=== PATIENT | female | born 2000 | race African-American/Black ===

== ENCOUNTER 2021-10-31 17:25 | Outpatient (CLI) | payer MEDICAID ==
[~2021-10-31] VITALS: Ht 165.1 cm; Wt 74.8 kg
[2021-10-31 18:00] VITALS: BP 124/61
[2021-10-31] MEDS ORDERED: PNV11TAB5 PO (18:04)
[2021-10-31 18:06] LABS: BILIRUBIN,URINE NEGATIVE (NEGATIVE); CLARITY,URINE CLEAR; COLOR,URINE YELLOW; GLUCOSE, URINE (UA) NEGATIVE (NEGATIVE); KETONES,URINE 3+ (NEGATIVE); LEUKOCYTE ESTERASE ,URINE NEGATIVE (NEGATIVE); NITRITE,URINE NEGATIVE (NEGATIVE); PROTEIN,URINE TRACE (NEGATIVE)
[2021-10-31 18:14] LABS: BACTERIA,URINE TRACE /HPF; WBC,URINE 0-2 /HPF
[2021-10-31] MEDS ORDERED: ONDANSETRON 4 MG (ZOFRAN) ORAL DISSOLVE TAB PO STA (18:36)
--- NOTE | 2021-11-03 08:11 | Physician Query-Final Dx ---
JACK11/03/21 0811: Clinic Account Progress/Dx Physician Query: Please give diagnosis Please include # weeks gestation Date of Service Oct 31, 2021 at 17:25 LUDIN BUNCH DO 11/03/21 0849: Clinic Account Progress/Dx DIAGNOSIS: Diagnosis 28 week gestation Fall at home, on stairs Covid positive vomiting JACK,OctNov 03, 2021 08:11 LUDIN BUNCH DO Nov 03, 2021 08:49
== END 2021-10-31 22:05 | disposition home or self-care (01) ==
LOC: LDRP 17:25 → WSo 17:25
PROVIDERS: ATTEND Obstetrics & Gynecology
DX: O21.9 Vomiting of pregnancy, unspecified (principal); O98.513 Other viral diseases complicating pregnancy, third trimester; O9A.213 Injury, poisoning and certain other consequences of external causes complicating pregnancy, third trimester; Z3A.28 28 weeks gestation of pregnancy; W10.8XXA Fall (on) (from) other stairs and steps, initial encounter; Y92.009 Unspecified place in unspecified non-institutional (private) residence as the place of occurrence of the external cause
CPT/HCPCS: 81000; 87636; G0463; 99213

== ENCOUNTER → 2021-12-25 | Outpatient (CLI) | payer MEDICAID ==
[~2021-12-25] MED LIST: PNV11TAB5 PO
--- NOTE | 2021-12-25 15:02 | Diagnostic Imaging Report ---
INDICATION: survey. TECHNIQUE: Multiple real-time grayscale images were obtained over the gravid uterus. COMPARISON: None FINDINGS: There is a single live fetus in a cephalic presentation. heart rate was recorded at 138 BPM. Placenta is fundal and to the left. Amniotic fluid index is 12.5 cm. survey is somewhat limited due to advanced gestation. kidneys, bladder, and stomach are unremarkable. brain is unremarkable. There is a four-chamber heart. There is a three-vessel cord. The cord insertion was somewhat difficult to visualize. spine is unremarkable. Biometrical measurements are as follows: Biparietal 8.25 cm, age 33 weeks 2 days. Head circumference 30.07 cm, age 33 weeks 3 days. Abdominal circumference 27.88 cm, age 32 weeks 0 days. Femur length 6.78 cm, age 34 weeks 6 days. Sonographic estimate age: 33 weeks 3 days. Sonographic estimated date of delivery: 02/09/2022. Estimated Weight: 2111 gm (+/- 309 gm). LMP percentile: 4%. heart rate: 138 beats per minute. number: 1 of 1. IMPRESSION: Single live IUP measuring 33-34 weeks gestational age with the estimated of confinement sonographically of 02/09/2022. The survey is unremarkable, although cord insertion was somewhat limited in visualization. Dictated by: Dictated on workstation # [id number]
== END ==
LOC: RAD 13:00
PROVIDERS: ATTEND Nurse Practitioner Women's Health
DX: O09.33 Supervision of pregnancy with insufficient antenatal care, third trimester (principal); Z3A.33 33 weeks gestation of pregnancy
CPT/HCPCS: 76805

== ENCOUNTER 2021-12-30 10:59 | Outpatient (CLI) | payer MEDICAID ==
[~2021-12-30] VITALS: Ht 162 cm; Wt 82.6 kg
[2021-12-30 11:18] VITALS: BP 120/80
[2021-12-30 11:26] VITALS: BP 120/80
[2021-12-30 11:43] LABS: BILIRUBIN,URINE NEGATIVE (NEGATIVE); CLARITY,URINE CLEAR; COLOR,URINE YELLOW; GLUCOSE, URINE (UA) NEGATIVE (NEGATIVE); KETONES,URINE NEGATIVE (NEGATIVE); LEUKOCYTE ESTERASE ,URINE TRACE (NEGATIVE); NITRITE,URINE NEGATIVE (NEGATIVE); PH,URINE 7.5 (5-9); PROTEIN,URINE NEGATIVE (NEGATIVE)
[2021-12-30 11:57] LABS: BACTERIA,URINE TRACE /HPF; WBC,URINE 0-2 /HPF
[2021-12-30 12:38] VITALS: BP 120/80
--- NOTE | 2021-12-31 08:32 | Physician Query-Final Dx ---
Clinic Account Progress/Dx Physician Query: Please give diagnosis Please include # weeks gestation Date of Service Dec 30, 2021 at 10:59 JACK,OctDec 31, 2021 08:32
== END 2021-12-30 12:42 | disposition home or self-care (01) ==
LOC: LDRP 10:59 → WSo 10:59
PROVIDERS: ATTEND Obstetrics & Gynecology
DX: O26.899 Other specified pregnancy related conditions, unspecified trimester (principal); R10.2 Pelvic and perineal pain; Z3A.00 Weeks of gestation of pregnancy not specified
CPT/HCPCS: 81000; G0463; 99213

== ENCOUNTER 2022-01-08 10:03 | Outpatient (CLI) | payer MEDICAID ==
[~2022-01-08] VITALS: Ht 162.6 cm; Wt 86.1 kg
[2022-01-08 10:25] VITALS: BP 117/68
[2022-01-08 10:57] LABS: BILIRUBIN,URINE NEGATIVE (NEGATIVE); CLARITY,URINE CLEAR; COLOR,URINE YELLOW; GLUCOSE, URINE (UA) NEGATIVE (NEGATIVE); KETONES,URINE NEGATIVE (NEGATIVE); LEUKOCYTE ESTERASE ,URINE TRACE (NEGATIVE); NITRITE,URINE NEGATIVE (NEGATIVE); PH,URINE 6.5 (5-9); PROTEIN,URINE TRACE (NEGATIVE)
[2022-01-08 11:34] LABS: WBC,URINE 0-2 /HPF
[2022-01-08 11:35] LABS: BACTERIA,URINE TRACE /HPF
[2022-01-08 11:36] LABS: AMORPHOUS SEDIMENT,UR MOD AMOR URATES /LPF
--- NOTE | 2022-01-09 07:51 | Physician Query-Final Dx ---
JACK,01/09/22 0751: Clinic Account Progress/Dx Physician Query: Please give diagnosis Please include # weeks gestation Date of Service Jan 08, 2022 at 10:03 KAVYA NIXON DO 01/09/22 1012: Clinic Account Progress/Dx DIAGNOSIS: Diagnosis 37 week Irregular contractions JACK,OctJan 09, 2022 07:51 KAVYA NIXON DO Jan 09, 2022 10:12
== END 2022-01-08 12:02 | disposition home or self-care (01) ==
LOC: WSo 10:03 → LDRP 10:03 → WSo 12:02
PROVIDERS: ATTEND Obstetrics & Gynecology
DX: O47.1 False labor at or after 37 completed weeks of gestation (principal); Z3A.37 37 weeks gestation of pregnancy
CPT/HCPCS: 81000; G0463; 99213

== ENCOUNTER 2022-01-14 10:24 | Inpatient (IN) | payer MEDICAID ==
[2022-01-14] VITALS (29 sets, daily range): BP systolic 133–211; BP diastolic 76–109
--- OUTSIDE RECORDS SUMMARY | 2022-01-14 10:30 | XMS REPORT | Clinical Summary ---
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 Active Problems No known active problems Social History Date Tobacco Use Types Packs/Day Years Used Never Smoker Comments Alcohol Use Standard Drinks/Week Not Asked 0 (1 standard drink = 0.6 o z pure alcohol) Sex Assigned at Date Recorded Not on file Last Filed Vital Signs Reading Time Taken Comments Vital Sign 110/60 08/04/2014 1:32 PM CDT Blood Pressure 86 08/04/2014 1:32 PM CDT Pulse 36.7 C (98 F) 08/04/2014 1:32 PM CDT Temperature 16 08/04/2014 1:32 PM CDT Respiratory Rate 100% 08/04/2014 1:32 PM CDT Oxygen Saturation - - Inhaled Oxygen Concentration 71.2 kg (157 lb) 08/04/2014 1:32 PM CDT Weight 163.8 cm (5' 4.5") 08/04/2014 1:32 PM CDT Height 26.53 08/04/2014 1:32 PM CDT Body Mass Index Plan of Treatment Health Maintenance Due Date Last Done Comments Varicella Vaccines (1 of 2000 2 - 2-dose childhood series) HPV Vaccines (1 - 2-dose 2010 series) COVID-19 Vaccine (1) 2011 MenB Vaccine (Bexsero) (1 2015 of 2) Hepatitis C Screening 2017 DTaP,Tdap,and Td Vaccines 2018 (1 - Tdap) MMR Vaccines-Adult 2018 Cervical Cancer Screening 2020 Influenza Vaccine (#1) 2021 Pneumo-Vaccine: 65+Yrs (1 2064 of 1 - PPSV23) HIB Vaccines Aged Out No longer eligible based on patient's age to complete this topic IPV Vaccines Aged Out No longer eligible based on patient's age to complete this topic Meningococcal Vaccine Aged Out No longer eligib le based on patient's age to complete this topic Pneumo-Vaccine: Peds (0-5 Aged Out No longer el igible based on patient's age to Yrs) & At-Risk Patients complete this topic (6-64 Yrs) Rotavirus Vaccines Aged Out No longer eligible based on patient's age to complete this topic Results Not on filefrom Last 3 Months Insurance Type Payer Benefit Subscriber ID Effective Phone Address Plan / Dates Group [employer] KANCARE 19 [id number] 2014- [address] [employer] Present [address] [place] [address] Advance Directives For more information, please contact: [phone] 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
[2022-01-14] MEDS: LACTATED RINGERS 1,000 ML IV SCH ×2 (10:45→12:30)
[2022-01-14] MEDS ORDERED: D5 LR IV SOLUTION 1,000 ML IV SCH (11:00)
[2022-01-14] MEDS ORDERED: LIDOCAINE/EPI 2% 1:200,00 (XYLOCAINE) 20 ML VIAL INJ PRN (11:00)
[2022-01-14] MEDS ORDERED: OXYTOCIN PRE-MIX DRIP 500 ML IV ONE (11:01)
[2022-01-14 11:16] LABS: BASOPHILS % (AUTO) 0 % (0-10); EOSINOPHILS # (AUTO) 0.1 10^3/uL (0.0-0.3); EOSINOPHILS % (AUTO) 1 % (0-10); HEMATOCRIT 30 % (35-52); HEMOGLOBIN 9.7 g/dL (11.5-16.0); LYMPHOCYTES # (AUTO) 2.2 10^3/uL (1.0-4.0); LYMPHOCYTES % (AUTO) 14 % (12-44); MEAN CORPUSCULAR HEMOGLOBIN 28 pg (25-34); MEAN CORPUSCULAR HGB CONC 32 g/dL (32-36); MEAN CORPUSCULAR VOLUME 87 fL (80-99); MEAN PLATELET VOLUME 10.8 fL (9.0-12.2); MONOCYTES # (AUTO) 1.4 10^3/uL (0.0-1.0); MONOCYTES % (AUTO) 9 % (0-12); NEUTROPHILS # (AUTO) 11.3 10^3/uL (1.8-7.8); NEUTROPHILS % (AUTO) 76 % (42-75); PLATELET COUNT 250 10^3/uL (130-400)
[2022-01-14 11:55] LABS: LYMPHOCYTES % (MANUAL) 12 %; MONOCYTES % (MANUAL) 11 %; NEUTROPHILS % (MANUAL) 77 %; POLYCHROMASIA SLIGHT; RBC MORPH NORMAL
--- NOTE | 2022-01-14 12:00 | History & Physical-OB ---
OB - Chief Complaint & HPI Date/Time Date of Admission: Date of Admission: Jan 14, 2022 at 10:24 am Date seen by a Provider: Jan 14, 2022 Time Seen by a Provider: 12:30 Chief Complaint/History OB-Reason for Admission/Chief: Onset of Labor Hx : 3 Hx Para: 2 Expected Date of Delivery: Jan 24, 2022 Gestational Age in Weeks: 38 Gestational Age in Days: 4 Admission Nurse Assessment Rev: Yes History of Labs Opos Antibody neg RI RPR NR HBsAg NR HIV NR GC neg GBS neg Allergies and Home Medications Allergies Coded Allergies: No Known Drug Allergies (Unverified , 10/31/21) Patient Home Medication List Home Medication List Reviewed: Yes [id number]/FA/Omega3/Dha/Fish Oil ( Gummies) 1 Each Tab.chew, 2 EACH PO DAILY, (Reported) Entered as Reported by: ESTEE VILLA on 10/31/211803 OB - History Hx of Present Care: Yes Ultrasounds: Normal mid trimester US Obstetrical Complications: None Medical Complications: None Patient Past Medical History n/a Social History/Family History 2nd Hand Smoke Exposure: No OB - Admission Exam Physical Exam Vitals: Vital Signs 01/14/22 10:58 Temp 36.5 Pulse 76 Resp 18 Pulse Ox 100 O2 Delivery Room Air HEENT: NCAT Heart: Rhythm Normal Lungs: Clear Abdomen: Gravid Extremities: Normal Reflexes: Normal Cervical Dilatation: 5cm Effacement: 75% Station: -1 Membranes: Intact Heart Rate: 130's Accelerations: Accelerations Present Decelerations: No Decelerations Short Term Variability: Present Detention Variability: Average (6-25) Contractions on Admission: < 5 Minutes Apart Intensity: Firm Labs Laboratory Tests Test 01/14/22 10:25 Range/Units White Blood Count 15.0 H 4.3-11.0 10^3/uL Red Blood Count 3.45 L 3.80-5.11 10^6/uL Hemoglobin 9.7 L 11.5-16.0 g/dL Hematocrit 30 L 35-52 % Mean Corpuscular Volume 87 80-99 fL Mean Corpuscular Hemoglobin 28 25-34 pg Mean Corpuscular Hemoglobin Concent 32 32-36 g/dL Red Cell Distribution Width 14.5 10.0-14.5 % Platelet Count 250 130-400 10^3/uL Mean Platelet Volume 10.8 9.0-12.2 fL Immature Granulocyte % (Auto) 0 % Neutrophils (%) (Auto) 76 H 42-75 % Lymphocytes (%) (Auto) 14 12-44 % Monocytes (%) (Auto) 9 0-12 % Eosinophils (%) (Auto) 1 0-10 % Basophils (%) (Auto) 0 0-10 % Neutrophils # (Auto) 11.3 H 1.8-7.8 10^3/uL Lymphocytes # (Auto) 2.2 1.0-4.0 10^3/uL Monocytes # (Auto) 1.4 H 0.0-1.0 10^3/uL Eosinophils # (Auto) 0.1 0.0-0.3 10^3/uL Basophils # (Auto) 0.0 0.0-0.1 10^3/uL Immature Granulocyte # (Auto) 0.1 0.0-0.1 10^3/uL Neutrophils % (Manual) 77 % Lymphocytes % (Manual) 12 % Monocytes % (Manual) 11 % Polychromasia SLIGHT Blood Morphology Comment NORMAL OB - Assessment/Plan/Diagnosis Assessment Assessment: active labor Admission Dx 21 yo @ 38 weeks Active labor GBS neg Admission Status: Inpatient Order (span 2 midnights) Reason for Inpatient Admission: Active labor at term Plan Plan: Expectant Management KAVYA NIXON DO Jan 14, 2022 12:00 pm
[2022-01-14] MEDS ORDERED: fentaNYL 2 mcg/ml BUPIVA 0.125 0 ML ONE (12:22)
[2022-01-14] MEDS ORDERED: HYDROmorphone 2 MG/ML VIAL (DILAUDID) IV ONE (13:00)
[2022-01-14] MEDS ORDERED: CATHETER FLUSH 10 ML SYR IV SCH ×2 (14:00→22:00)
[2022-01-14] MEDS ORDERED: LIDOCAINE/EPI 2% 1:200,00 (XYLOCAINE) 10 ML VIAL ONE (14:05)
[2022-01-14] MEDS: OXYTOCIN PRE-MIX DRIP 500 ML IV SCH ×2 (14:20→14:52)
[2022-01-14] MEDS ORDERED: NALOXONE 0.4 MG/ML 1 ML (NARCAN) VIAL IV PRN (14:30)
[2022-01-14] MEDS ORDERED: HYDROcodone/APAP 5 MG/325 MG (LORTAB) TAB PO PRN (14:30)
[2022-01-14] MEDS ORDERED: TETANUS,DIPTH,PERTUSS P/F (BOOSTRIX) 0.5 ML VIAL IM ONE (14:30)
[2022-01-14] MEDS ORDERED: MEASLES,MUMPS,RUBELLA 1 EA INJ SQ ONE (14:30)
[2022-01-14] MEDS ORDERED: WITCH HAZEL(TUCKS) 40 EA JAR TOP PRN (14:30)
[2022-01-14] MEDS ORDERED: DIBUCAINE 1% OINTMENT 30 GM TUBE TOP PRN (14:30)
[2022-01-14] MEDS ORDERED: BENZOCAINE/MENTHOL (DERMOPLAST) 56 ML CAN TP PRN (14:30)
--- NOTE | 2022-01-14 14:35 | OB Labor & Delivery Record ---
L&D History Date of Service Date of Service: Jan 14, 2022 History Expected Date of Delivery: Jan 24, 2022 Gestational Age in Weeks: 38 Hx : 3 Hx Para: 2 Complications Events: Routine care Operative Indications (Cesarea: N/A-Vaginal Delivery Intrapartal Events: None L&D Stage1 Stage One Onset of Labor - Date: Jan 14, 2022 Monitors and Tracing Monitor Mode: External Heart Rate: 125 Monitor Accelerations: Uniform Monitor Decelerations: None Residential Service Technician Variability: Average (6-10) Short Term Variability: Present Presentation: Vertex Vital Signs VS - Last 72 Hours, by Label 01/14/22 10:58 Temp 36.5 Pulse 76 Resp 18 Pulse Ox 100 O2 Delivery Room Air Rupture of Membranes Spontaneous Ruture of Membrane: Yes Amniotic Membrane Rupture Time: 14:15 Amniotic Membrane Fluid Desc.: Clear Vaginal Bleeding Description: Normal Show Progress/Notes Patient presented in active labor. She progressed without augmentation to complete and 0 station when arom was performed. L&D Stage2 Stage Two Stage II Date: Jan 14, 2022 Monitors and Tracing Monitor Mode: External Heart Rate: 125 Monitor Accelerations: Uniform Monitor Decelerations: Variable Residential Service Technician Variability: Average (6-10) Short Term Variability: Present Position: Right Occiput Anterior Presentation: Vertex Cord Descript/Complications Cord Vessel Description: 3 Vessels Delivery Type Infant Delivery Method: Spontaneous Vaginal Anterior Shoulder: Left Episiotomy/Perineal Laceration Laceraction(s)/Extensions: No Condition of Delivery 1 minute Comment: 8 5 minute Comment: 9 Notes Live female weight 7lbs even. Condition of Infant Condition of : Living Exam: No Observed Abnormalities Resuscitation Resuscitation: N/A - Spontaneous Resp L&D Stage3 Stage Three Stage III Date: Jan 14, 2022 Pictocin Pitocin Administration Comment: 30 mu wide open after delivery of placenta Placenta Delivery Placenta Delivery: Spontaneous Delivery Summary Summary Estimated blood loss (mL): 300 Attending at delivery: Kavya Nixon DO Condition of Delivery Examined: Cervix Examined, Uterus Explored Post Hemorrhage: No Condition of Mother stable Condition of Infant (s) stable KAVYA NIXON DO Jan 14, 2022 14:35
--- NOTE | 2022-01-14 14:37 | Discharge Inst-Women's Service ---
Discharge Inst-Women's Serv Depart Medication/Instructions New, Converted or Re-Newed RX: Transmitted to Pharmacy Final Diagnosis PPD 1 NVD Problems Reviewed?: Yes Consults/Follow Up Additional Follow Up: Yes Orders/Referrals Dr. Nixon in 6 weeks Activity Activity: Activity as Tolerated Driving Instructions: No Driving for 1 Week NO SMOKING: NO SMOKING Nothing Inside Vagina: No Douching, No [place], No Tampons Diet Discharge Diet: No Restrictions Symptoms to Report to : Bleeding Excessive, Pain Increased, Fever Over 101 Degrees F, Vaginal Bleeding Increase, Questions/Concerns For Any Problems or Questions: Contact Your Physician KAVYA NIXON DO Jan 14, 2022 14:37
[2022-01-14] MEDS ORDERED: BENZ78AE5 TP (14:38)
[2022-01-14] MEDS ORDERED: DIBU30OI TOP (14:38)
[2022-01-14] MEDS ORDERED: IBUP-844 PO (14:38)
[2022-01-14] MEDS ORDERED: DOCU100C37 PO (14:38)
[2022-01-14] MEDS ORDERED: ACHD5005 PO (14:38)
[2022-01-14] MEDS ORDERED: METHYLERGONOVINE 0.2 MG/ML (METHERGINE) AMP IM ONE (15:00)
[2022-01-14] MEDS ORDERED: METHYLERGONOVINE 0.2 MG/ML (METHERGINE) AMP ONE (15:04)
[2022-01-14] MEDS ORDERED: CARBOPROST (HEMABATE) 250 MCG/ML AMP IM ONE ×2 (15:14→15:15)
[2022-01-14] MEDS ORDERED: ONDANSETRON 4 MG/2 ML (SDV) Z0FRAN ONE (15:28)
[2022-01-14] MEDS ORDERED: hydrALAZINE (APESOLINE) 20 MG/ML VIAL ONE (15:56)
[2022-01-14] MEDS ORDERED: hydrALAZINE (APESOLINE) 20 MG/ML VIAL IV ONE ×2 (16:00→16:15)
[2022-01-14] MEDS: IBUPROFEN 600 MG (MOTRIN) TAB PO SCH (16:24)
[2022-01-14] MEDS: amLODIPine 5 MG (NORVASC) TAB PO SCH (17:04)
[2022-01-14] MEDS: DOCUSATE SODIUM 100 MG (COLACE) CAP PO SCH (20:39)
[2022-01-15 00:15] VITALS: BP 119/60
[2022-01-15] MEDS: IBUPROFEN 600 MG (MOTRIN) TAB PO SCH ×2 (00:15→05:37)
[2022-01-15 03:50] VITALS: BP 135/84
[2022-01-15 05:40] LABS: BASOPHILS % (AUTO) 0 % (0-10); EOSINOPHILS % (AUTO) 0 % (0-10); HEMATOCRIT 28 % (35-52); LYMPHOCYTES # (AUTO) 2.7 10^3/uL (1.0-4.0); LYMPHOCYTES % (AUTO) 13 % (12-44); MEAN CORPUSCULAR HEMOGLOBIN 28 pg (25-34); MEAN CORPUSCULAR HGB CONC 32 g/dL (32-36); MEAN CORPUSCULAR VOLUME 85 fL (80-99); MEAN PLATELET VOLUME 10.3 fL (9.0-12.2); MONOCYTES # (AUTO) 1.6 10^3/uL (0.0-1.0); MONOCYTES % (AUTO) 8 % (0-12); NEUTROPHILS # (AUTO) 16.5 10^3/uL (1.8-7.8); NEUTROPHILS % (AUTO) 79 % (42-75); PLATELET COUNT 234 10^3/uL (130-400); WHITE BLOOD COUNT 20.9 10^3/uL (4.3-11.0)
[2022-01-15 08:00] VITALS: BP 141/85
--- NOTE | 2022-01-15 08:26 | Postpartum Progress Note ---
Note Note Day # 1 Subjective: Patient is without complaints. Ambulating, voiding. Tolerating a regular diet without nausea or vomiting. Normal lochia. Pain is well controlled with oral pain medications. Patient had increase in BP peripartum which was treated with 10 of hydralazine, and 5 of norvasc with appropriate response. Continues to be controlled overnight. Objective: Physical Exam: General - Alert and oriented, no apparent distress Abdomen - Soft, appropriately tender to palpation, non-distended, fundus firm at umbilicus Extremities - no edema, negative Shiva's bilaterally Assessment: PPD 1 NVD Acute leukocytosis Peripartum HTN Plan: Routine care. Continue Norvasc today, establish BP control Repeat CBC tomorrow for WBC monitoring Encourage breast feeding. Encourage ambulation. Ferrous sulfate supplementation. Plan for discharge tomorrow if WBC improves and no further HTN episodes Vitals - Labs Vital Signs - I&O Vital Signs Date Time Temp Pulse Resp B/P (MAP) Pulse Ox O2 Delivery O2 Flow Rate FiO2 01/15/22 03:50 37.0 67 18 135/84 (101) 97 Room Air 01/15/22 00:15 37.1 86 18 119/60 (79) 99 Room Air 01/14/22 20:39 36.3 81 20 133/86 (102) 99 Room Air 01/14/22 17:47 66 20 133/76 (95) Room Air 01/14/22 17:34 35.5 63 20 154/85 (108) Room Air 01/14/22 17:19 70 20 152/86 (108) Room Air 01/14/22 17:04 35.5 60 20 151/80 (103) Room Air 01/14/22 16:49 59 20 166/77 (106) Room Air 01/14/22 16:34 67 20 154/87 (109) Room Air 01/14/22 16:26 62 20 151/77 (101) Room Air 01/14/22 16:19 49 20 193/83 (119) Room Air 01/14/22 16:09 50 20 195/90 (125) Room Air 01/14/22 16:07 49 20 211/96 (134) Room Air 01/14/22 16:05 65 20 158/78 (104) Room Air 01/14/22 15:51 64 20 189/93 (125) Room Air 01/14/22 15:49 67 20 201/86 (124) Room Air 01/14/22 15:38 64 20 177/86 (116) Room Air 01/14/22 15:37 69 20 178/80 (112) Room Air 01/14/22 15:35 70 20 178/94 (122) Room Air 01/14/22 15:23 87 20 142/96 (111) Room Air 01/14/22 15:06 81 20 176/81 (112) Room Air 01/14/22 15:04 84 20 164/101 (122) Room Air 01/14/22 14:49 36.1 83 20 162/90 (114) Room Air 01/14/22 14:34 36.1 96 20 160/101 (120) Room Air 01/14/22 14:20 83 20 141/100 (114) Room Air 01/14/22 13:25 65 20 157/83 (107) Room Air 01/14/22 12:52 88 20 141/109 (120) 98 Room Air 01/14/22 11:49 72 20 185/95 (125) Room Air 01/14/22 10:58 36.5 76 18 100 Room Air 01/14/22 10:45 36.5 76 20 149/102 (118) Room Air 01/14/22 10:18 36.6 74 20 178/106 (130) 100 Room Air I & O 01/15/22 07:00 Intake Total 1700 ml Balance 1700 ml Labs Laboratory Tests 01/14/22 10:25: White Blood Count 15.0H, Red Blood Count 3.45L, Hemoglobin 9.7L, Hematocrit 30L, Mean Corpuscular Volume 87, Mean Corpuscular Hemoglobin 28, Mean Corpuscular Hemoglobin Concent 32, Red Cell Distribution Width 14.5, Platelet Count 250, Mean Platelet Volume 10.8, Immature Granulocyte % (Auto) 0, Neutrophils (%) (Auto) 76H, Lymphocytes (%) (Auto) 14, Monocytes (%) (Auto) 9, Eosinophils (%) (Auto) 1, Basophils (%) (Auto) 0, Neutrophils # (Auto) 11.3H, Lymphocytes # (Auto) 2.2, Monocytes # (Auto) 1.4H, Eosinophils # (Auto) 0.1, Basophils # (Auto) 0.0, Immature Granulocyte # (Auto) 0.1, Neutrophils % (Manual) 77, Lymphocytes % (Manual) 12, Monocytes % (Manual) 11, Polychromasia SLIGHT, Blood Morphology Comment NORMAL 01/15/22 05:30: White Blood Count 20.9H, Red Blood Count 3.27L, Hemoglobin 9.0L, Hematocrit 28L, Mean Corpuscular Volume 85, Mean Corpuscular Hemoglobin 28, Mean Corpuscular Hemoglobin Concent 32, Red Cell Distribution Width 14.2, Platelet Count 234, Mean Platelet Volume 10.3, Immature Granulocyte % (Auto) 1, Neutrophils (%) (Auto) 79H, Lymphocytes (%) (Auto) 13, Monocytes (%) (Auto) 8, Eosinophils (%) (Auto) 0, Basophils (%) (Auto) 0, Neutrophils # (Auto) 16.5H, Lymphocytes # (Auto) 2.7, Monocytes # (Auto) 1.6H, Eosinophils # (Auto) 0.0, Basophils # (Auto) 0.0, Immature Granulocyte # (Auto) 0.1 KAVYA NIXON DO Jan 15, 2022 08:26
[2022-01-15] MEDS: DOCUSATE SODIUM 100 MG (COLACE) CAP PO SCH ×2 (09:09→20:46)
[2022-01-15] MEDS: PRENATAL VITAMIN 1 EA TAB PO SCH (09:09)
[2022-01-15] MEDS: FERROUS SULF 325 MG (IRON) TAB PO SCH (09:10)
[2022-01-15] MEDS: amLODIPine 5 MG (NORVASC) TAB PO SCH (09:10)
[2022-01-15 12:13] VITALS: BP 155/86
[2022-01-15 20:39] VITALS: BP 145/95
[2022-01-15 23:57] VITALS: BP 123/80
[2022-01-16 04:52] VITALS: BP 114/75
[2022-01-16 05:49] LABS: BASOPHILS % (AUTO) 0 % (0-10); EOSINOPHILS # (AUTO) 0.1 10^3/uL (0.0-0.3); EOSINOPHILS % (AUTO) 1 % (0-10); HEMATOCRIT 30 % (35-52); HEMOGLOBIN 9.5 g/dL (11.5-16.0); LYMPHOCYTES # (AUTO) 3.2 10^3/uL (1.0-4.0); LYMPHOCYTES % (AUTO) 26 % (12-44); MEAN CORPUSCULAR HEMOGLOBIN 28 pg (25-34); MEAN CORPUSCULAR HGB CONC 31 g/dL (32-36); MEAN CORPUSCULAR VOLUME 88 fL (80-99); MEAN PLATELET VOLUME 10.4 fL (9.0-12.2); MONOCYTES % (AUTO) 8 % (0-12); NEUTROPHILS # (AUTO) 8.1 10^3/uL (1.8-7.8); NEUTROPHILS % (AUTO) 65 % (42-75); PLATELET COUNT 260 10^3/uL (130-400); WHITE BLOOD COUNT 12.5 10^3/uL (4.3-11.0)
[2022-01-16 09:30] VITALS: BP 143/99
[2022-01-16] MEDS: PRENATAL VITAMIN 1 EA TAB PO SCH (09:34)
[2022-01-16] MEDS ORDERED: AMLO-250 PO (09:34)
[2022-01-16] MEDS: amLODIPine 5 MG (NORVASC) TAB PO SCH (09:34)
[2022-01-16] MEDS: DOCUSATE SODIUM 100 MG (COLACE) CAP PO SCH (09:34)
[2022-01-16] MEDS: FERROUS SULF 325 MG (IRON) TAB PO SCH (09:34)
--- NOTE | 2022-01-16 09:35 | Postpartum Progress Note ---
Note Note Day # 2 Subjective: Patient is without complaints. Ambulating, voiding. Tolerating a regular diet without nausea or vomiting. Normal lochia. Pain is well controlled with oral pain medications. Physical Exam: General - Alert and oriented, no apparent distress Abdomen - Soft, appropriately tender to palpation, non-distended, fundus firm at umbilicus Extremities - no edema, negative Shiva's bilaterally Assessment: Post- day # 2, status post spontaneous vaginal delivery. Recovering well, hemodynamically stable Acute blood loss anemia Andreia- HTN Plan: Continue Norvasc 5mg PO QD on DC Routine care. Encourage breast feeding. Encourage ambulation. Ferrous sulfate supplementation. Plan for discharge today Vitals - Labs Vital Signs - I&O Vital Signs Date Time Temp Pulse Resp B/P (MAP) Pulse Ox O2 Delivery O2 Flow Rate FiO2 01/16/22 04:52 37.0 78 16 114/75 (88) 100 Room Air 01/15/22 23:57 36.7 72 16 123/80 (94) 98 Room Air 01/15/22 20:39 36.7 79 16 145/95 (112) 98 Room Air 01/15/22 12:13 75 20 155/86 (109) 100 Room Air Labs Laboratory Tests 01/16/22 05:24: White Blood Count 12.5H, Red Blood Count 3.46L, Hemoglobin 9.5L, Hematocrit 30L, Mean Corpuscular Volume 88, Mean Corpuscular Hemoglobin 28, Mean Corpuscular Hemoglobin Concent 31L, Red Cell Distribution Width 14.5, Platelet Count 260, Mean Platelet Volume 10.4, Immature Granulocyte % (Auto) 1, Neutrophils (%) (Auto) 65, Lymphocytes (%) (Auto) 26, Monocytes (%) (Auto) 8, Eosinophils (%) (Auto) 1, Basophils (%) (Auto) 0, Neutrophils # (Auto) 8.1H, Lymphocytes # (Auto) 3.2, Monocytes # (Auto) 1.0, Eosinophils # (Auto) 0.1, Basophils # (Auto) 0.0, Immature Granulocyte # (Auto) 0.1 JOSE BARILLAS SIZE TESTER Jan 16, 2022 09:35
== END 2022-01-16 12:40 | disposition home or self-care (01) | DRG 806 ==
LOC: LDRP 10:24
PROVIDERS: ADMIT Obstetrics & Gynecology; ATTEND Obstetrics & Gynecology
PROC: 10E0XZZ Delivery of Products of Conception, External Approach (ICD-10-PCS; principal; 2022-01-14)
PROC: 10907ZC Drainage of Amniotic Fluid, Therapeutic from Products of Conception, Via Natural or Artificial Opening (ICD-10-PCS; 2022-01-14)
DX: O80 Encounter for full-term uncomplicated delivery (principal); D62 Acute posthemorrhagic anemia; Z37.0 Single live birth; O99.13 Other diseases of the blood and blood-forming organs and certain disorders involving the immune mechanism complicating the puerperium; Z3A.38 38 weeks gestation of pregnancy; O16.5 Unspecified maternal hypertension, complicating the puerperium; O90.81 Anemia of the puerperium; D72.829 Elevated white blood cell count, unspecified
CPT/HCPCS: 36415; 85007; 85025; 85027; 86850; 86900; 86901; 99212